=== PATIENT | female | born 1970 | race Caucasian/White ===

== ENCOUNTER → 2023-12-05 16:45 | Outpatient (REF) | payer OTHER, SELFPAY | LOC: WDC 16:45 | PROVIDERS: ATTENDING PHYSICIAN Obstetrics & Gynecology; FAMILY PHYSICIAN Family Medicine | DX: Z12.31 Encounter for screening mammogram for malignant neoplasm of breast (principal) | CPT/HCPCS: 77063; 77067 ==

== ENCOUNTER → 2023-12-13 09:02 | Outpatient (REF) | payer OTHER, SELFPAY | LOC: MRI 3T 09:02 | PROVIDERS: ATTENDING PHYSICIAN Internal Medicine | DX: Z87.19 Personal history of other diseases of the digestive system (principal) | CPT/HCPCS: 72197; 74183; A9575 ==

== ENCOUNTER → 2023-12-16 06:38 | Day surgery (SDC) | payer OTHER, SELFPAY | LOC: GI 06:38 | PROVIDERS: ATTENDING PHYSICIAN Internal Medicine; FAMILY PHYSICIAN Family Medicine | DX: K62.89 Other specified diseases of anus and rectum (principal); K64.9 Unspecified hemorrhoids; K22.89 Other specified disease of esophagus; K44.9 Diaphragmatic hernia without obstruction or gangrene; Z85.028 Personal history of other malignant neoplasm of stomach | CPT/HCPCS: 45380; 43239; 88305; 88342 ==

== ENCOUNTER 2024-09-03 06:36 | Day surgery (SDC) | payer OTHER, SELFPAY | END 2024-09-03 12:39 | disposition home or self-care (01) | LOC: GI 06:36 | PROVIDERS: ATTENDING PHYSICIAN Internal Medicine; FAMILY PHYSICIAN Family Medicine | DX: K51.20 Ulcerative (chronic) proctitis without complications (principal); Z87.19 Personal history of other diseases of the digestive system; K62.89 Other specified diseases of anus and rectum; K52.9 Noninfective gastroenteritis and colitis, unspecified | CPT/HCPCS: 45331; 88305 ==

== ENCOUNTER → 2024-10-05 09:46 | Outpatient (REF) | payer OTHER, SELFPAY | LOC: WDC 09:46 | PROVIDERS: ATTENDING PHYSICIAN Obstetrics & Gynecology | DX: N63.0 Unspecified lump in unspecified breast (principal); N63.21 Unspecified lump in the left breast, upper outer quadrant | CPT/HCPCS: 76642; 77062; 77066 ==

== ENCOUNTER → 2025-05-04 12:35 | Outpatient (REF) | payer OTHER, SELFPAY | LOC: HWRAD 12:35 | PROVIDERS: ATTENDING PHYSICIAN Family Medicine | DX: M81.0 Age-related osteoporosis without current pathological fracture (principal) | CPT/HCPCS: 77080 ==